=== PATIENT | male | born 1970 | race Two or more races ===

== ENCOUNTER 2019-10-02 05:28 | Emergency (ER) | payer SELFPAY ==
[~2019-10-02] VITALS: Ht 167.6 cm; Wt 88.5 kg
--- NOTE | 2019-10-02 05:45 | NUR ---
ED Nurse Note: pt presents to ED c/o back of head px that he rates an 04/30. pt denies any injury or trauma to the area but reports it could be related to stress. he also c/o 06/30 R knee px without injury as well. pt states that the knee px is exacerbated by weight bearing and denies taking any medications prior to arrival.
[2019-10-02 05:47] VITALS: BP 121/73
--- NOTE | 2019-10-02 06:25 | NUR ---
ED Nurse Note: pt transported to CT via wheelchair. friend is at pt chair-side
[2019-10-02] MEDS ORDERED: FIORICET1 EA ORAL (06:29)
--- NOTE | 2019-10-02 06:34 | NUR ---
ED Nurse Note: pt returned from CT. will continue to monitor
--- NOTE | 2019-10-02 06:51 | Diagnostic Imaging Report ---
EXAM: CT Head Without Intravenous Contrast CLINICAL HISTORY: PAIN TECHNIQUE: Axial computed tomography images of the head/brain without intravenous contrast. CTDI is 62.7 mGy and DLP is 147 57.7 mGy-cm. One or more of the following dose reduction techniques were used: automated exposure control, adjustment of the mA and/or kV according to patient size, use of iterative reconstruction technique. Coronal and sagittal reconstructions are performed COMPARISON: No relevant prior studies available. FINDINGS: Brain: Unremarkable. No hemorrhage. No significant white matter disease. No edema. Ventricles: Unremarkable. No ventriculomegaly. Bones/joints: Old fracture of medial wall of right orbit with protrusion of right orbital fat. No acute fracture. Soft tissues: Unremarkable. Sinuses: Mild ethmoid sinus disease. Mastoid air cells: Unremarkable as visualized. No mastoid effusion. IMPRESSION: No acute intracranial findings
[2019-10-02 07:00] VITALS: BP 121/73
--- NOTE | 2019-10-02 07:00 | NUR ---
ER DISCHARGE NOTE: Patient is cleared to be discharged per ERMD, pt is aox4, on room air, with stable vital signs. pt was given dc and prescription instructions. he verbalized understanding of teachings. pt id band removed without complications. pt is able to ambulate with steady gait. pt took all belongings.
--- NOTE | 2019-10-06 02:21 | Emergency Room Report ---
History of Present Illness General Chief Complaint: Pain Source: Patient Present Illness HPI Patient is a 49-year-old male presents after increased headache. He had gradual onset of symptoms. He denies any prior history of headaches. Reports having some fever as well as sore throat. Nonproductive cough. Denies any numbness or weakness to his extremities. Reports having some generalized body aches. Denies any diarrhea or vomiting. Allergies: Coded Allergies: No Known Allergies (Unverified , 10/02/19) Patient History Past Medical History: see triage record Reviewed Nursing Documentation: PMH: Agreed; PSxH: Agreed Nursing Documentation-PMH Past Medical History: No Stated History Review of Systems All Other Systems: negative except mentioned in HPI Physical Exam Vital Signs Date Time Temp Pulse Resp B/P (MAP) Pulse Ox O2 Delivery O2 Flow Rate FiO2 10/02/19 07:00 97.9 87 16 121/73 93 Room Air Sp02 EP Interpretation: reviewed, normal General Appearance: normal inspection, well appearing, no apparent distress, alert, GCS 15 Head: atraumatic ENT: normal ENT inspection, hearing grossly normal, normal voice Neck: normal inspection, full range of motion, supple, no bony tend Respiratory: normal inspection, lungs clear, normal breath sounds, no respiratory distress, no retraction, no wheezing Cardiovascular #1: regular rate, rhythm, no edema Gastrointestinal: normal inspection, normal bowel sounds, non tender, soft, no guarding, no hernia Genitourinary: no CVA tenderness Musculoskeletal: normal inspection, back normal, normal range of motion Neurologic: alert, motor strength/tone normal, hospital ward clerk III-XII nml as tested, oriented x3, responsive, speech normal, normal inspection Psychiatric: normal inspection, judgement/insight normal, mood/affect normal Medical Decision Making Diagnostic Impression: Primary Impression: Headache ER Course Patient presented for headache. Differential diagnoses included but was not limited to skull fracture, subarachnoid hemorrhage, meningitis, aneurysm, mass lesion, intracranial hemorrhage. CT imaging read by radiologist no evidence of acute intracranial pathology. Patient does not appear to have any evidence of meningismus. Low and discussed with patient for subarachnoid hemorrhage. Patient appears to have a viral headache. Patient was given prescription for medication for symptomatic treatment. Advised to return if worse. The patient is advised to follow up with primary care doctor in 1-2 days. Patient is advised to return if any worsening condition or if any changes in status that are concerning. This report is dictated with [employer] straw boss software which may occasionally lead to discrepancies related to use of this software. Last Vital Signs Date Time Temp Pulse Resp B/P (MAP) Pulse Ox O2 Delivery O2 Flow Rate FiO2 10/02/19 07:00 97.9 87 16 121/73 93 Room Air Status: improved Disposition: HOME, SELF-CARE Condition: Stable Scripts Acetamin/Butalbital/Caffeine* (FIORICET*) 1 Ea Tab 1 TAB ORAL Q6H, #15 TAB 0 Refills Prov: Riley Hood MD 10/02/19 Referrals: NOT CHOSEN IPA/,REFERRING (PCP) Patient Instructions: General Headache Without Cause Additional Instructions: Follow up with your doctor for recheck. Return if worse. Riley Hood MD Oct 06, 2019 02:21
== END 2019-10-02 07:00 | disposition home or self-care (01) ==
LOC: EMR 05:53
DX: R51 Headache (principal); R50.9 Fever, unspecified; R05 Cough; R07.0 Pain in throat
CPT/HCPCS: 70450; 99284